=== PATIENT | female | born 1975 | race Two or more races ===

== ENCOUNTER 2024-06-02 09:11 | Emergency (ER) | payer MEDICAID, SELFPAY ==
[2024-06-02 10:11] VITALS: BP 113/79; PULSE 99; RESP 18; TEMP 37.3; O2SAT 97; BMI 38.7
--- NOTE | 2024-06-02 10:23 | XR_ITS ---
Examination: Pelvic ultrasound, transabdominal, complete Technique: Transabdominal ultrasound of the pelvis performed using grayscale imaging Date and time of exam: June 02, 2024 1310 hours INDICATIONS: Lower pelvic pain and back pain beginning one week ago FINDINGS: Uterus 8.7 cm endometrial stripe 0.2 cm No uterine mass Right ovary 9.2 x 7.5 x 7.5 cm arterial flow 8.9 x 5.7 x 8.1 cm complex cyst irregular margins with septation Left ovary 3.3 cm arterial flow IMPRESSION: Complex septated cystic mass with irregular margins right adnexal region 8.9 x 5.7 x 8.1 cm, differential would include cystadenocarcinoma Recommend MRI pelvis follow-up pre and postcontrast
--- NOTE | 2024-06-02 10:24 | PD.EDRME ---
Rapid Medical Screening Exam RME Arrival date/time: 06/02/24 09:11 49-year-old female presents to the emergency department with complaints of pelvic pain that radiates to her back x 1 day patient also reports she feels weak mild bleeding is unaware if it is vaginal or from urine. I have greeted and performed a focused initial assessment of this patient. Initial appropriate labs ordered at this time. A comprehensive ED assessment and evaluation of the patient and analysis of all test and completion of medical decision making process will be conducted by additional ED provider. Chief Complaint: Flu Like Symptoms Time Seen by Provider: 06/02/24 09:30 Vital signs: Vital Signs Temperature 99.1 F 06/02/24 10:11 Pulse Rate 99 06/02/24 10:11 Respiratory Rate 18 06/02/24 10:11 Blood Pressure 113/79 06/02/24 10:11 Pulse Oximetry (%) 97 06/02/24 10:11 Oxygen Delivery Method Room Air 06/02/24 10:11
[2024-06-02 10:44] LABS: Basophils % (Auto) 0 % (0-2.5); Eosinophils % (Auto) 0 % (0-10); Hemoglobin 12.1 g/dL (12.0-16.0); Immature Granulocytes % (Auto) 1 % (0-0); Immature Granulocytes Auto 0.13 Thou/mm3 (0.00-0.00); Lymphocytes # (Auto) 2.6 Thou/mm3 (1.0-4.8); Lymphocytes % (Auto) 13 % (10-50); Mean Corpuscular HGB Conc 33.6 g/dl (31.0-37.0); Mean Corpuscular Hemoglobin 28.4 pg (25.0-35.0); Mean Corpuscular Volume 85 fL (80-100); Monocytes # (Auto) 1.3 Thou/mm3 (0.0-0.8); Monocytes % (Auto) 7 % (0-12); Neutrophils % (Auto) 80 % (37-80); Nucleated Red Blood Cell % 0 /100 WBC (0); Platelet Count 320 Thou/mm3 (140-440); RDW Standard Deviation 41.4 fL (36.4-46.3); Red Blood Count 4.26 Miln/mm3 (4.00-5.20); White Blood Count 20.1 Thou/mm3 (3.6-11.0)
[2024-06-02 11:00] LABS: Alanine Aminotransferase 12 U/L (10-49); Albumin, Serum 4.5 gm/dL (3.5-5.0); Albumin/Globulin Ratio 1.3 (1.2-2.2); Alkaline Phosphatase 145 U/L (46-116); Anion Gap 10 (7-16); Aspartate Amino Transferase 15 U/L (0-34); BUN/Creatinine Ratio 12 Ratio (12-20); Bilirubin,Total 1.2 mg/dL (0.3-1.2); Blood Urea Nitrogen 11 mg/dL (9-23); Calcium 9.1 mg/dL (8.3-10.6); Calcium (Corrected) 9.1 mg/dL (8.5-10.1); Carbon Dioxide 26.9 mMol/L (20.0-31.0); Chloride 97 mMol/L (98-107); Creatinine (Component) 0.9 mg/dL (0.6-1.3); Globulin 3.6 gm/dL (2.3-3.5); Glucose 108 mg/dL (74-106); Lipase 40 U/L (12-53); Osmolality,Calculated 268 (275-295); Potassium 3.9 mMol/L (3.4-5.1); Sodium 134 mMol/L (136-145); Total Protein 8.1 gm/dL (5.7-8.2); eGFR > 60 See Note
[2024-06-02 11:01] LABS: Collection Type, Urine Clean Catch
[2024-06-02 11:07] LABS: HCG Qualitative,Urine Negative
[2024-06-02 11:11] LABS: Bilirubin,Urine Negative (Negative); Blood,Urine 2+ (Negative); Color,Urine Yellow (Lt Yel-Yel); Glucose, Urine Negative (Negative); Ketones,Urine 1+ (Negative); Leukocyte Esterase,Urine Positive (Negative); Nitrite,Urine Negative (Negative); Protein,Urine 2+ (Neg - Trace); RBC,Urine 901 /hpf (0-3); Specific Gravity,Urine 1.026 (1.001-1.035); Squamous Epithelial Cell,Urine 11 /hpf (0-5); WBC,Urine 9 /hpf (0-5)
--- NOTE | 2024-06-02 11:35 | XR_ITS ---
Examination: CT abdomen with intravenous contrast CT pelvis with intravenous contrast 2-D coronal reconstructions 2-D sagittal reconstructions Date and time of exam:June 02, 2024 1346 hours INDICATIONS: Pelvic pain beginning one week ago. CTDI: vol (mGy) 12.1 DLP: (mGycm) 698 Technique: Multiple axial sections of the abdomen and pelvis have been obtained. 64 slice high-resolution scanner used. 3 mm axial sections have been obtained, post intravenous injection 60 cc [id number] 2-D sagittal, coronal reconstructions obtained. Low dose protocols were performed. One or more of the following dose reduction techniques were used; automated exposure control, adjustment of the mA and/or KV according to patient size, use of iterative reconstruction technique. Findings: No focal liver or splenic lesions Multiple gallstones No pancreatic or adrenal mass No renal or ureteral calculi, no hydronephrosis Aorta normal size No pericecal inflammatory change Mild free fluid in the pelvis Complex partially septated cystic mass in the right pelvis, at least 9.1 x 6.0 x 7.9 cm No uterine mass IMPRESSION: Cholelithiasis, recommend hepatobiliary sonography follow-up to assess the gallbladder wall Complex partially septated cystic mass in the right pelvis, 9.1 x 6.0 x 7.9 cm, differential would include cystadenoma, cystadenocarcinoma Recommend elective MRI pelvis follow-up pre and post intravenous contrast
[2024-06-02 12:02] LABS: Clarity,Urine Hazy (Clear/Hazy)
[2024-06-02 14:02] VITALS: BP 132/85; PULSE 100; RESP 18; TEMP 37.1; O2SAT 95
--- NOTE | 2024-06-02 15:27 | PC.NURSE ---
REQUEST PAIN MED FROM MD, NO PROVIDER HAS BEEN ASSIGNED. AWAITING FOR PROVIDER TO BE ASSIGNED TO ADDRESS PAIN.
--- NOTE | 2024-06-02 16:15 | PD.EDFMALE ---
ED Female Urogenital RME/HPI General Chief complaint: Flu Like Symptoms Stated complaint: N/V DIZZINES, WEAKNESS, BODACHES Time Seen by Provider: 06/02/24 09:30 Arrival date/time: 06/02/24 09:11 49-year-old female presents to the emergency department with complaints of pelvic pain that radiates to her back x 1 day patient also reports she feels weak mild bleeding is unaware if it is vaginal or from urine. There are no other associated symptoms or aggravating factors no other modifying factors, patient denies taking medication before coming to ER today Limitations: no limitations RME / HPI RME / HPI Narrative: 06/02/24 09:11 49-year-old female presents to the emergency department with complaints of pelvic pain that radiates to her back x 1 day patient also reports she feels weak mild bleeding is unaware if it is vaginal or from urine. I have greeted and performed a focused initial assessment of this patient. Initial appropriate labs ordered at this time. A comprehensive ED assessment and evaluation of the patient and analysis of all test and completion of medical decision making process will be conducted by additional ED provider. Related Data Home Medications ?Medication ?Instructions ?Recorded ?Confirmed chlorthalidone 25 mg tablet See Rx Instructions .Route .COMPLEX 07/09/21 07/09/21 omeprazole 40 mg capsule,delayed 40 mg PO QDAY 07/09/21 07/09/21 release Previous Rx's ?Medication ?Instructions ?Recorded nitrofurantoin 100 mg PO BID #14 caps 07/09/21 monohydrate/macrocrystals 100 mg capsule (Macrobid) potassium chloride 20 mEq oral 20 meq PO QDAY #10 ea 07/09/21 packet hydrocodone 5 mg-acetaminophen 325 1 tab PO BID PRN pain #10 tabs 06/02/24 mg tablet ibuprofen 800 mg tablet 800 mg PO TID PRN pain #30 tabs 06/02/24 ondansetron 4 mg disintegrating 4 mg PO Q8H PRN nausea and 06/02/24 tablet vomiting #10 tabs Allergies Allergy/AdvReac Type Severity Reaction Status Date / Time No Known Allergies Allergy Verified 06/02/24 09:14 Review of Systems Review of Systems Systems Reviewed: All systems reviewed, normal except as documented Constitutional Constitutional: Reports system reviewed and no additional complaints, except as documented, Denies fever(s) and Denies headache(s) Eyes Eyes: Reports system reviewed and no additional complaints, except as documented and Denies blurry vision ENT Ears, Nose, Mouth, and Throat: Reports system reviewed and no additional complaints, except as documented, Denies headache(s), Denies nasal congestion and Denies nasal discharge Cardiovascular Cardiovascular: Reports system reviewed and no additional complaints, except as documented, Denies chest pain and Denies dyspnea Respiratory Respiratory: Reports system reviewed and no additional complaints, except as documented, Denies chest congestion, Denies cough and Denies dyspnea Gastrointestinal Gastrointestinal: Reports system reviewed and no additional complaints, except as documented and Denies abdominal pain Genitourinary Genitourinary: Reports system reviewed and no additional complaints, except as documented and Reports abnormal vaginal bleeding Integumentary/Breasts Skin/Breast: Reports system reviewed and no additional complaints, except as documented and Denies rash Neurologic Neurologic: Reports system reviewed and no additional complaints, except as documented, Reports as per HPI and Denies headache(s) Past Medical History Past Medical History CARDIAC: Positive Hypertension; Negative Cardiac Disorders or Congestive Heart Failure RESPIRATORY: Negative Chronic Obstructive Pulmonary Disease (COPD) or Asthma GASTROINTESTINAL: Positive Gall Bladder Disease GENITOURINARY: Negative Renal Disease ENDOCRINE: Negative Diabetes Mellitus Type 1 or Diabetes Mellitus Type 2 HEMATOLOGIC: Negative Sickle Cell Disease Social History SMOKING STATUS: Never smoker Past Medical History Comments [facility] COMMENT: Patient has a history of x 2 both approximately 30 years ago. She has had a history of vaginal delivery x 4. She states she still having regular cycles although her last cycle was 2 months ago. She denies hot flashes or night sweats. She gets regular gynecological care at [facility] and had a Pap 1 year ago. She had some type of exploratory laparotomy and removal of some type of ovarian cyst 19 years ago. She denies chronic medical problems including asthma diabetes and hypertension. ED Exam General Limitations: Present no limitations General appearance: Present alert and in no apparent distress Head Head exam: Present atraumatic Eye Eye exam: Present normal appearance, PERRL and EOMI ENT ENT exam: Present normal exam, normal oropharynx and mucous membranes moist Neck Neck exam: Present normal inspection, full ROM and trachea midline Chest Chest inspection: Present normal inspection and symmetric chest wall rise Respiratory Respiratory exam: Present normal lung sounds bilaterally; Absent respiratory distress or wheezes Cardiovascular Cardiovascular exam: Present regular rate, normal rhythm and normal heart sounds Abdominal Exam Abdominal exam: Present soft, tenderness and normal bowel sounds; Absent distention, guarding, rebound or rigidity Abdominal tenderness: Present suprapubic Extremities Exam Extremities exam: Present normal inspection and full ROM Back Exam Back exam: Present normal inspection and full ROM Neurological Exam Neurological exam: Present alert, oriented X3 and CN II-XII intact Psychiatric Psychiatric exam: Present normal affect and normal mood Skin Skin exam: Present warm, dry, intact and normal color Course Quality Measures none Orders Category Date Time Status CT Screening NOW Care 06/02/24 11:35 Completed NPO NOW Care 06/02/24 16:06 Completed Consult to Gynecology Stat Cons 06/02/24 16:06 Ordered Diet NPO (NOW) Diet 06/02/24 16:[address] abdomen pelvis w con Stat Exams 06/02/24 11:35 Completed US pelvic complete Stat Exams 06/02/24 10:23 Completed CA 125 Stat Lab 06/02/24 10:33 Completed CBC Stat Lab 06/02/24 10:33 Completed Comprehensive Metabolic Panel Stat Lab 06/02/24 10:33 Completed HCG Qualitative,Urine Stat Lab 06/02/24 10:47 Completed Lipase Stat Lab 06/02/24 10:33 Completed Urinalysis Stat Lab 06/02/24 10:47 Completed Ibuprofen Tab [Motrin Tab] Med 06/02/24 20:31 Discontinued 400 mg PO X1 ONE Morphine Inj Med 06/02/24 16:06 Discontinued 4 mg IVP X1 ONE Ondansetron Inj [Zofran Inj] Med 06/02/24 16:06 Discontinued 4 mg IV X1 ONE Sodium Chloride 0.9% 1000 ml [Ns] 1,000 ml Med 06/02/24 17:52 Discontinued IV 999 mls/hr ceFAZolin/D5W 1 GM IVPB [Ancef Ivpb] Med 06/02/24 17:51 Discontinued 1 gm in 50 ml IV X1 Vital Signs Vital signs: Vital Signs Temperature 99.1 F 06/02/24 10:11 Pulse Rate 99 06/02/24 10:11 Respiratory Rate 18 06/02/24 10:11 Blood Pressure 113/79 06/02/24 10:11 Pulse Oximetry (%) 97 06/02/24 10:11 Oxygen Delivery Method Room Air 06/02/24 10:11 O2 saturation 97% r/a wnl Urogenital - Female MDM Narrative MDM Narrative:: 49-year-old female presents to the emergency department with complaints of pelvic pain that radiates to her back x 1 day patient also reports she feels weak mild bleeding is unaware if it is vaginal or from urine. There are no other associated symptoms or aggravating factors no other modifying factors, patient denies taking medication before coming to ER today Lab work and imaging obtained Patient does have a finding of cholelithiasis which appears to be chronic patient has no upper abdominal pain Patient does have pelvic pain FINDINGS: Uterus 8.7 cm endometrial stripe 0.2 cm No uterine mass Right ovary 9.2 x 7.5 x 7.5 cm arterial flow 8.9 x 5.7 x 8.1 cm complex cyst irregular margins with septation Left ovary 3.3 cm arterial flow IMPRESSION: Complex septated cystic mass with irregular margins right adnexal region 8.9 x 5.7 x 8.1 cm, differential would include cystadenocarcinoma Recommend MRI pelvis follow-up pre and postcontrast Per radiologist Consultation: I spoke with Dr. Holman who was kind enough to come to the hospital and evaluate the patient in person she felt that the patient be should be given Ancef 1 g, IV fluids, pain medication. Prior to discharge Dr Holman acid the patient be drawn for CA125 which was drawn At time reevaluation patient's pain is significantly improved ' Patient was given a copy of her CT as well as ultrasound reports instructed to follow-up with PCP as soon as possible for further evaluation to rule out malignancy or other problems patient will most likely require surgery for intervention Patient discharged home in no distress to follow-up with primary care doctor in the next 24 to 48 hours and for any worsening symptoms to return to the ER immediately Patient data External records reviewed:: [facility] previous records Clinical information provided by:: patient Social determinants that could affect healthcare access:: none Patient has the following chronic illnesses:: None How is presenting disease/condition affected by chronic disease/condition?: no chronic disease Evaluation data The following diagnostics were reviewed and interpreted by me:: lab results and radiology exam(s) Lab and/or radiology exams considered but not ordered:: Labs and radiology obtained Interpretation Summary: Reviewed by me Medications / Prescriptions Medications or Prescriptions considered but not ordered:: Given Medication administrations:: Medication Administration History Discontinued Medications Cefazolin Sodium/Dextrose (Ancef Ivpb) 1 gm in 50 mls @ 100 mls/hr IV X1 ONE Stop: 06/02/24 18:20 Last Infusion: 06/02/24 20:29 Dose: Infused Documented By: Admin: 06/02/24 18:40 Dose: 100 mls/hr Documented By: VG Sodium Chloride (Ns) 1,000 mls @ 999 mls/hr IV .Q1H1M ONE Stop: 06/02/24 18:52 Last Infusion: 06/02/24 20:29 Dose: Infused Documented By: Admin: 06/02/24 18:39 Dose: 999 mls/hr Documented By: VG Ibuprofen (Ibuprofen Tab 400 Mg Tablet) 400 mg PO X1 ONE Stop: 06/02/24 20:32 Last Admin: 06/02/24 20:38 Dose: 400 mg Documented By: CVL Morphine Sulfate (Morphine Sulf Inj 10 Mg/Ml Vial) 4 mg IVP X1 ONE Stop: 06/02/24 16:07 Last Admin: 06/02/24 17:13 Dose: 4 mg Documented By: VG Ondansetron HCl (Ondansetron Inj 2 Mg/Ml Inj 2 Ml) 4 mg IV X1 ONE; Protocol Stop: 06/02/24 16:07 Last Admin: 06/02/24 17:15 Dose: 4 mg Documented By: VG Given Consultations Consultation(s) initiated? (list below): Yes Consultation #1 (Physician, Specialty, Details): Dr Holman Diagnosis Urogenital Female Differential Diagnosis: urinary tract infection, bacterial vaginosis, ovarian cyst, vaginitis, ruptured ovarian cyst and cystitis Most likely diagnosis given after review of the tests above:: Abdominal pain Admission Indicated Admission indicated?: not indicated Admission Request Was there a request for admission?: No Disposition Plan Disposition Plan: Discharge Discharge Attestation Discharge Attestation: The patient and all family members were given an opportunity to ask questions and understood the discharge instructions. Discharge instructions specifically effects, indications for sooner follow up or return to the emergency department, and the expected course of current diagnosis. Patient condition: Stable Discharge Plan Plan Patient Disposition: HOME (Self Care) Disposition Comment: Stable Prescriptions/Referrals Prescriptions/Med Rec: New ibuprofen 800 mg tablet 800 mg PO TID PRN (Reason: pain) Qty: 30 0RF hydrocodone-acetaminophen 5-325 mg tablet 1 tab PO BID MDD 10 PRN (Reason: pain) Qty: 10 0RF ondansetron 4 mg tablet,disintegrating 4 mg PO Q8H PRN (Reason: nausea and vomiting) Qty: 10 0RF No Action chlorthalidone 25 mg tablet See Rx Instructions .ROUTE .COMPLEX Patient Comments: TAKE 1/2 TABLET BY MOUTH EVERY MORNING WITH FOOD Rx Instructions: TAKE 1/2 A TABLET BY MOUTH EVERY MORNING WITH FOOD omeprazole 40 mg capsule,delayed release(DR/EC) 40 mg PO QDAY Patient Comments: TAKE 1 CAPSULE BY MOUTH EVERY DAY 30 MINUTES BEFORE MORNING MEAL FOR 30 DAYS potassium chloride 20 mEq packet 20 meq PO QDAY Qty: 10 0RF nitrofurantoin monohyd/m-cryst [Macrobid] 100 mg capsule 100 mg PO BID Qty: 14 0RF Rx Instructions: must administer with a meal/food Referrals: No Primary/Family,Physician [Primary Care Provider] - In 1 week Problem List Clinical Impression: Pelvic mass, Pelvic pain, Cholelithiasis Patient/Caregiver Discharge Instructions Education Materials: Medicine for Pain Additional Instructions: Please follow-up with PCP in order get a referral for gynecology for worsening symptoms or concerns return immediately A CA125 was ordered while you are here in the hospital please follow-up on results Please print copy of your CT as well as ultrasound your primary care doctor for further evaluation and for referral to specialist If your pain persists or if it worsens for any reason return immediately for further evaluation Print Language: Mongolian Stand Alone Forms: Veronica Award Info., Patient Portal Info Letter 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 guardado
[2024-06-02 16:35] VITALS: BP 139/85; PULSE 98; RESP 9; TEMP 37.3; O2SAT 94
[2024-06-02] MEDS: MORPHINE SULF INJ 10 MG/ML VIAL 4 MG IVP (17:13)
[2024-06-02] MEDS: ONDANSETRON INJ 2 MG/ML INJ 2 ML 4 MG IV (17:15)
[2024-06-02 18:24] VITALS: BP 140/89; PULSE 94; RESP 13; TEMP 37.1; O2SAT 96
[2024-06-02] MEDS: SODIUM CHLORIDE 0.9% 1000 ML 1,000 ML 999 ML IV (18:39)
[2024-06-02] MEDS: ceFAZolin/D5W 1 GM IVPB 1 GM/50 ML BAG IV (18:40)
[2024-06-02] MEDS: IBUPROFEN TAB 400 MG TABLET PO (20:38)
[2024-06-02 20:40] VITALS: RESP 18
--- NOTE | 2024-06-02 22:56 | PD.GYNCONS ---
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 She reported dysuria and hematuria. She denied fevers but reported nausea and vomiting and some diarrhea over the last couple of days. Through a cushion sewer she told me she had some type of vertical incision and exploratory laparotomy and a removal of an ovarian cyst 19 years ago. I have no records. The patient states she is missing an ovary. I am consulted for a right adnexal cyst 8.9 x 5.7 x 8.1 cm. She has no signs of ovarian torsion. Patient also has a left ovary according to the CT and ultrasound report. I am consulted about the pelvic mass. cc:: cc: Review of Systems Constitutional Constitutional: Reports system reviewed and no additional complaints, except as documented Comments: Patient reports some pinkish fluid and states she is unsure whether it is from her vagina or bladder. Last Pap was 1 year ago. She reports dysuria, hematuria, vague abdominal pain, right flank pain, nausea, vomiting for 3 days and diarrhea the morning of presentation. She specifically denies colicky pain. She denies signs or symptoms of torsion. She sees a provider at [facility] in [place]. Past Medical History Past Medical History Comments [facility] COMMENT: Patient has a history of x 2 both approximately 30 years ago. She has had a history of vaginal delivery x 4. She states she still having regular cycles although her last cycle was 2 months ago. She denies hot flashes or night sweats. She gets regular gynecological care at [facility] and had a Pap 1 year ago. She had some type of exploratory laparotomy and removal of some type of ovarian cyst 19 years ago. She denies chronic medical problems including asthma diabetes and hypertension. Meds Home Medications and Allergies Home Medications ?Medication ?Instructions ?Recorded ?Confirmed ?Type chlorthalidone 25 mg tablet See Rx Instructions .Route .COMPLEX 07/09/21 07/09/21 History omeprazole 40 mg capsule,delayed 40 mg PO QDAY 07/09/21 07/09/21 History release Allergies Allergy/AdvReac Type Severity Reaction Status Date / Time No Known Allergies Allergy Verified 06/02/24 09:14 Exam - COFFEE BREAK ATTENDANT Vital Signs Temp Pulse Resp BP Pulse Ox O2 Del Method 98.8 F 94 18 140/89 H 96 Room Air 06/02/24 18:24 06/02/24 18:24 06/02/24 20:40 06/02/24 18:24 06/02/24 18:24 06/02/24 18:24 Constitutional Constitutional: no acute distress Comments: Patient is resting comfortably in bed Routine Respiratory Exam Respiratory: Present lungs clear Routine Cardiovascular Exam Cardiovascular: Present RRR Routine Abdominal Exam Abdominal: Present soft and surgical scars (Patient has a large vertical scar from her umbilicus to her pubic symphysis. She has Pfannenstiel scars.) Comments: Patient's abdomen is soft nontender nondistended. She has no rebound no guarding. There is no right or left flank tenderness. Routine Exam Comments: Bedside pelvic exam performed. External genitalia appears normal. Uterus is not enlarged. She has no cervical motion tenderness uterine tenderness I cannot palpate adnexal masses on either side. COFFEE BREAK ATTENDANT - Results Labs 06/02/24 10:33 06/02/24 10:33 Labs: Short CBC 06/02/24 Range/Units 10:33 WBC 20.1 H (3.6-11.0) Thou/mm3 Hgb 12.1 (12.0-16.0) g/dL Hct 36.0 (36.0-46.0) % Plt Count 320 (140-440) Thou/mm3 BMP 06/02/24 10:33 Sodium 134 L Potassium 3.9 Chloride 97 L Carbon Dioxide 26.9 BUN 11 Creatinine 0.9 Glucose 108 H Calcium 9.1 Liver Function 06/02/24 Range/Units 10:33 Total Bilirubin 1.2 (0.3-1.2) mg/dL AST 15 (0-34) U/L ALT 12 (10-49) U/L Alkaline Phosphatase 145 H (46-116) U/L Albumin 4.5 (3.5-5.0) gm/dL Urine 06/02/24 Range/Units 10:47 Urine Color Yellow (Lt Yel-Yel) Urine Clarity Hazy (Clear/Hazy) Urine pH 8.0 H (5.0-7.0) Ur Specific [place] 1.026 (1.001-1.035) Urine Protein 2+ A (Neg - Trace) Urine Glucose (UA) Negative (Negative) Imaging and Cardiology US - abdomen: Status: image reviewed by me Additional comments: Image read by the radiologist and reviewed by me revealing a right adnexal mass 8.9 x 5.7 x 8.1 largely simple with some septations. I am unclear whether this is an actual ovarian cyst or cyst loculated adhesions secondary to her exploratory laparotomy and 2 sections. Assessment and Plan Assessment and plan (1) Pelvic mass: Status: Acute Assessment and plan: Right adnexal mass 8.9 x 5.7 x 8.1 cm with complex irregular borders. Left ovary normal size. Order CA125. Unclear whether this is a pelvic mass or loculated adhesions. Can follow-up with ultrasounds. If persistent, patient might need surgical evaluation. (2) Abdominal pain: Status: Acute Assessment and plan: Unclear whether her pain is due to a bladder infection, small kidney stone, gastroenteritis, or possibly the 9 x 6 cm complex cyst. At this point patient will be discharged home after checking a urine culture giving a dose of Ancef and sending the patient home on pain medications. 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 A CA125 was ordered. (2) Abdominal pain Qualifiers: Abdominal location: generalized Qualified Code(s): R10.84 - Generalized abdominal pain
== END 2024-06-02 20:41 | disposition home or self-care (01) ==
PROVIDERS: Nurse Practitioner Primary Care; Emergency Provider Family Medicine
DX: K80.20 Calculus of gallbladder without cholecystitis without obstruction (principal); R19.00 Intra-abdominal and pelvic swelling, mass and lump, unspecified site; R10.2 Pelvic and perineal pain
CPT/HCPCS: 36415; 74177; 76856; 80053; 81001; 81025; 83690; 85025; 86304; 96365; 96375; 99285; A4649; J0689; J2270; J2405; J7030; Q9967; A9270

== ENCOUNTER → 2024-10-04 | Outpatient (CLI) | payer MEDICAID, SELFPAY ==
--- NOTE | 2024-10-04 12:30 | XR_ITS ---
Examination: MRI pelvis with intravenous contrast. MRI pelvis without intravenous contrast. Date and time of exam: October 04, 2024 1324 hours INDICATIONS: History lower pelvic pain beginning May 2024, complex septated cystic mass with irregular margins in the right adnexal region, a 0.9 x 5.7 x 8.1 cm on pelvic sonogram June 02, 2024 Technique: Multiple axial, sagittal and coronal sections of the pelvis obtained. Transverse images, TR 6020, TE 107. T1 weighted transverse images, TR 582, TE 9.5. T2-weighted sagittal images, TR 4000, TE 105. T2-weighted sagittal images, TR 4000, TE 5. Coronal images, TR 4210, TE 107. Axial and coronal images are obtained post 18 cc intravenous injection, gadolinium. Findings: Partially retroverted uterus 8.0 x 4.0 x 3.8 cm, no uterine mass Endometrial stripe 2 mm Right ovarian cystic mass 3.3 x 3.2 cm with rim-like enhancement on the postcontrast images but no mural nodular thickening Left ovary 2.4 x 2.3 cm with subcentimeter follicular cysts Mild free fluid in the cul-de-sac No pelvic lymphadenopathy Bladder intact IMPRESSION: Right ovarian cystic mass 3.3 x 3.2 cm with rim-like enhancement on the postcontrast images, however findings are not diagnostic for cystadenocarcinoma Recommend 3 month follow-up pelvic sonography
== END | disposition home or self-care (01) ==
PROVIDERS: PCP Physician Assistant; Referring Provider Physician Assistant; Visit Provider Physician Assistant
DX: N83.201 Unspecified ovarian cyst, right side (principal)
CPT/HCPCS: 72197; A9579